=== PATIENT | male | born 1970 | race Caucasian/White ===

== ENCOUNTER 2022-05-07 12:17 | Outpatient (CLI) | payer MEDICARE | END 2022-05-07 12:18 | disposition home or self-care (01) | LOC: ULT 12:17 | PROVIDERS: ATTEND Specialist | DX: N18.9 Chronic kidney disease, unspecified (principal) | CPT/HCPCS: 93970 ==

== ENCOUNTER 2022-05-07 14:20 | Outpatient (CLI) | payer MEDICARE | END 2022-05-07 14:21 | disposition home or self-care (01) | LOC: LABBT 14:20 | PROVIDERS: ATTEND Specialist | DX: Z01.818 Encounter for other preprocedural examination (principal); Z20.822 Contact with and (suspected) exposure to COVID-19; N18.9 Chronic kidney disease, unspecified | CPT/HCPCS: 93005; 93970; U0003; U0005; 93010 ==

== ENCOUNTER 2022-05-12 10:01 | Day surgery (SDC) | payer MEDICARE ==
[2022-05-08 12:07] VITALS: BMI 44.9
[2022-05-12 11:35] LABS: #Eosinphils 0.2 thou/uL (0.0-0.7); #Lymphocytes 2.2 thou/uL (1.20-3.40); #Monocytes 0.8 thou/uL (0.11-0.59); #Neutrophils 6.4 thou/uL (1.40-6.50); %Basophils 0.3 % (0.0-1.0); %Eosinophils 2.1 % (0.0-10.0); %Lymphocytes 22.9 % (21.0-51.0); %Monocytes 8.4 % (0.0-10.0); %Neutrophils 66.3 % (42.0-75.0); Hemoglobin 9.1 g/dL (14.0-18.0); Mean Corpuscular HGB CONC 31.5 g/dL (32.0-36.0); Mean Corpuscular Hemoglobin 31.9 pg (27.0-31.0); Mean Platelet Volume 8.7 fL (7.4-10.4); Platelet Count 212 thou/uL (130-400); RBC Distribution Width 13.3 % (11.5-14.5); Red Blood Cell (RBC) Count 2.86 mill/uL (4.70-6.10); White Blood Cell (WBC) Count 9.7 thou/uL (4.8-10.8)
[2022-05-12 11:45] LABS: Anion Gap 16 mmol/L (10-20); BUN (Urea Nitrogen) 33 mg/dL (8.4-25.7); Calc. Creatinine Clearance 29 mL/min (70-130); Calcium 9.1 mg/dL (7.8-10.44); Carbon Dioxide 28 mmol/L (22-29); Chloride 100 mmol/L (98-107); Glucose 90 mg/dL (70-105); Potassium 4.2 mmol/L (3.5-5.1); Sodium 140 mmol/L (136-145)
[2022-05-12] MEDS ORDERED: fentaNYL Citrate/PF 100 MCG/2 ML SYRINGE ONE (13:09)
[2022-05-12] MEDS ORDERED: Famotidine/PF 20 mg/2ml Vial ONE (13:09)
[2022-05-12] MEDS ORDERED: SUGAMMADEX SODIUM 200 MG/2 ML VIAL ONE (13:09)
[2022-05-12] MEDS ORDERED: Heparin 5,000 UNITS/ML VIAL ONE (13:11)
[2022-05-12] MEDS ORDERED: Lidocaine 1% w/Epinephrine 1:100K 30 ML VIAL ONE (13:11)
[2022-05-12] MEDS ORDERED: Bupivacaine 0.25% HCL 30 ML VIAL ONE (13:11)
[2022-05-12] MEDS ORDERED: Protamine Sulfate 50 MG/5 ML VIAL ONE (13:11)
[2022-05-12] MEDS ORDERED: CEFAZOLIN 2 GM VIAL ONE (13:14)
[2022-05-12] MEDS ORDERED: Sodium Chloride 0.9% 100 ML ONE (13:15)
[2022-05-12] MEDS ORDERED: Ondansetron PF 4 MG/2 ML Vial ONE (13:24)
[2022-05-12] MEDS ORDERED: Lidocaine 1% PF 5 ML VIAL ONE (13:24)
[2022-05-12] MEDS ORDERED: PROPOFOL 200 MG/20 ML VIAL ONE (13:24)
[2022-05-12] MEDS ORDERED: Rocuronium Bromide 10 MG/ML (10ML VIAL) ONE (13:24)
[2022-05-12] MEDS ORDERED: Metoclopramide HCl 10 MG/2 ML VIAL ONE (13:24)
[2022-05-12] MEDS ORDERED: PHENYLEPHRINE-NS 100 MCG/ML 10 ML SYRINGE ONE (13:24)
[2022-05-12] MEDS ORDERED: HYDROcodone/Acetaminophen 5/325 mg Tablet ONE (16:03)
[2022-05-12] MEDS ORDERED: Heparin 1,000 UNITS/ML VIAL ONE (16:27)
== END 2022-05-12 16:45 | disposition home or self-care (01) ==
LOC: SDC 10:01
PROVIDERS: ATTEND Specialist
PROC: 031C0ZF Bypass Left Radial Artery to Lower Arm Vein, Open Approach (ICD-10-PCS; principal; 2022-05-12)
DX: I12.0 Hypertensive chronic kidney disease with stage 5 chronic kidney disease or end stage renal disease (principal); E11.22 Type 2 diabetes mellitus with diabetic chronic kidney disease; N18.6 End stage renal disease; E11.51 Type 2 diabetes mellitus with diabetic peripheral angiopathy without gangrene; E66.01 Morbid (severe) obesity due to excess calories; Z68.41 Body mass index [BMI] 40.0-44.9, adult; Z79.4 Long term (current) use of insulin; Z79.82 Long term (current) use of aspirin; Z79.899 Other long term (current) drug therapy; Z89.511 Acquired absence of right leg below knee; Z89.512 Acquired absence of left leg below knee; Z99.2 Dependence on renal dialysis
CPT/HCPCS: 80048; 85025; C1776; J0690; J1644; J2405; J2704; J2720; J2765; J3490; S0020; S0028

== ENCOUNTER 2022-06-30 07:19 | Day surgery (SDC) | payer MEDICARE ==
[2022-06-16 15:14] VITALS: BMI 44.9
[~2022-06-30 07:19] MED LIST: Heparin 1,000 UNITS/ML VIAL ONE
[2022-06-30 09:33] VITALS: BP 139/69; TEMP 98.3
== END 2022-06-30 09:19 | disposition home or self-care (01) ==
LOC: SPEC 07:19
PROVIDERS: ATTEND Specialist
PROC: 037C3ZZ Dilation of Left Radial Artery, Percutaneous Approach (ICD-10-PCS; principal; 2022-06-30)
DX: T82.858A Stenosis of other vascular prosthetic devices, implants and grafts, initial encounter (principal); I12.0 Hypertensive chronic kidney disease with stage 5 chronic kidney disease or end stage renal disease; E11.22 Type 2 diabetes mellitus with diabetic chronic kidney disease; N18.6 End stage renal disease; E11.51 Type 2 diabetes mellitus with diabetic peripheral angiopathy without gangrene; E66.01 Morbid (severe) obesity due to excess calories; Z68.41 Body mass index [BMI] 40.0-44.9, adult; Z79.82 Long term (current) use of aspirin; Z79.899 Other long term (current) drug therapy; Z89.512 Acquired absence of left leg below knee; Z99.2 Dependence on renal dialysis
CPT/HCPCS: 36901; 36902; C1725; C1887; J1644

== ENCOUNTER 2022-09-03 11:52 | Outpatient (CLI) | payer MEDICARE | END 2022-09-03 11:53 | disposition home or self-care (01) | LOC: LABBT 11:52 | PROVIDERS: ATTEND Specialist | DX: Z20.822 Contact with and (suspected) exposure to COVID-19 (principal) | CPT/HCPCS: 87811 ==

== ENCOUNTER 2022-09-04 11:48 | Emergency (ER) | payer MEDICARE ==
[2022-09-04] MEDS ORDERED: HYDROcodone/Acetaminophen 5/325 mg Tablet ONE (12:23)
[2022-09-04] MEDS ORDERED: Ketorolac Tromethamine 30 MG/ML VIAL ONE (12:23)
[2022-09-04 14:33] LABS: #Lymphocytes 1.2 thou/uL (1.20-3.40); #Monocytes 0.7 thou/uL (0.11-0.59); #Neutrophils 6.2 thou/uL (1.40-6.50); %Basophils 0.5 % (0.0-1.0); %Eosinophils 0.5 % (0.0-10.0); %Monocytes 8.6 % (0.0-10.0); %Neutrophils 75.5 % (42.0-75.0); Hemoglobin 11.4 g/dL (14.0-18.0); Mean Corpuscular HGB CONC 31.7 g/dL (32.0-36.0); Mean Corpuscular Hemoglobin 33.6 pg (27.0-31.0); Mean Platelet Volume 8.1 fL (7.4-10.4); Platelet Count 224 thou/uL (130-400); RBC Distribution Width 13.2 % (11.5-14.5); Red Blood Cell (RBC) Count 3.41 mill/uL (4.70-6.10); White Blood Cell (WBC) Count 8.2 thou/uL (4.8-10.8)
[2022-09-04 14:53] LABS: ALT (SGPT) 8 U/L (8-55); AST (SGOT) 9 U/L (5-34); Albumin 4.2 g/dL (3.5-5.0); Alkaline Phosphatase 59 U/L (40-110); Anion Gap 15 mmol/L (10-20); BUN (Urea Nitrogen) 16 mg/dL (8.4-25.7); Bilirubin, Total 0.5 mg/dL (0.2-1.2); Calc. Creatinine Clearance 0 mL/min (70-130); Calcium 8.9 mg/dL (7.8-10.44); Carbon Dioxide 30 mmol/L (22-29); Chloride 94 mmol/L (98-107); Estimated GFR 12; Globulin 2.5 g/dL (2.4-3.5); Glucose 91 mg/dL (70-105); Lipase 7 U/L (8-78); Magnesium 1.9 mg/dL (1.6-2.6); Potassium 4.4 mmol/L (3.5-5.1); Protein, Total 6.7 g/dL (6.0-8.3); Sodium 135 mmol/L (136-145)
[2022-09-04 15:01] LABS: MDiff Complete? YES; Macrocytosis SLIGHT = 6-15 cells (100X) (0-5/hpf); Platelet Morphology Comment Appears Adequate; Polychromasia SLIGHT = 2-3 cells (100X) (0-2/hpf); Stomatocytes SLIGHT = 2-5 cells (100X) (0-1/hpf)
== END 2022-09-04 15:41 | disposition home or self-care (01) ==
LOC: ERS 11:48
DX: R53.81 Other malaise (principal); R11.10 Vomiting, unspecified; E11.9 Type 2 diabetes mellitus without complications; I10 Essential (primary) hypertension; F17.220 Nicotine dependence, chewing tobacco, uncomplicated
CPT/HCPCS: 36415; 80053; 83605; 83690; 83735; 84484; 85025; 93005; 96372; J1885

== ENCOUNTER 2022-09-08 09:14 | Day surgery (SDC) | payer MEDICARE ==
[2022-09-07 11:42] VITALS: BMI 39.4
[2022-09-08 10:49] LABS: #Basophils 0.1 thou/uL (0.0-0.2); #Eosinphils 0.1 thou/uL (0.0-0.7); #Lymphocytes 1.9 thou/uL (1.20-3.40); #Monocytes 0.7 thou/uL (0.11-0.59); #Neutrophils 6.7 thou/uL (1.40-6.50); %Basophils 0.8 % (0.0-1.0); %Eosinophils 0.8 % (0.0-10.0); %Lymphocytes 19.5 % (21.0-51.0); %Monocytes 7.6 % (0.0-10.0); %Neutrophils 71.2 % (42.0-75.0); Hemoglobin 11.3 g/dL (14.0-18.0); Mean Corpuscular HGB CONC 31.2 g/dL (32.0-36.0); Mean Corpuscular Hemoglobin 33.2 pg (27.0-31.0); Mean Platelet Volume 8.6 fL (7.4-10.4); Platelet Count 226 thou/uL (130-400); RBC Distribution Width 13.4 % (11.5-14.5); Red Blood Cell (RBC) Count 3.41 mill/uL (4.70-6.10); White Blood Cell (WBC) Count 9.4 thou/uL (4.8-10.8)
[2022-09-08 11:04] LABS: Anion Gap 23 mmol/L (10-20); BUN (Urea Nitrogen) 38 mg/dL (8.4-25.7); Calc. Creatinine Clearance 19 mL/min (70-130); Calcium 9.3 mg/dL (7.8-10.44); Carbon Dioxide 23 mmol/L (22-29); Chloride 98 mmol/L (98-107); Estimated GFR 7; Glucose 74 mg/dL (70-105); Potassium 4.7 mmol/L (3.5-5.1); Sodium 139 mmol/L (136-145)
[2022-09-08] MEDS ORDERED: Fentanyl 100 MCG/2 ML VIAL ONE (11:17)
[2022-09-08] MEDS ORDERED: fentaNYL Citrate/PF 100 MCG/2 ML SYRINGE ONE (11:47)
[2022-09-08] MEDS ORDERED: PROPOFOL 40 ML ONE (11:48)
[2022-09-08] MEDS ORDERED: Bupivacaine PF 0.5% 30 ML VIAL ONE (12:01)
[2022-09-08] MEDS ORDERED: Protamine Sulfate 50 MG/5 ML VIAL ONE (12:01)
[2022-09-08] MEDS ORDERED: Lidocaine 2% PF 5 ML VIAL ONE (12:01)
[2022-09-08] MEDS ORDERED: EPINEPHrine 1 MG/ML AMP ONE (12:01)
[2022-09-08] MEDS ORDERED: Heparin 5,000 UNITS/ML VIAL ONE (12:01)
[2022-09-08] MEDS ORDERED: Sodium Chloride 0.9% 100 ML ONE (12:11)
[2022-09-08] MEDS ORDERED: CEFAZOLIN 2 GM VIAL ONE (12:11)
[2022-09-08] MEDS ORDERED: PROPOFOL 200 MG/20 ML VIAL ONE (12:45)
[2022-09-08] MEDS ORDERED: HYDROcodone/Acetaminophen 5/325 mg Tablet ONE (14:48)
[2022-09-08] MEDS ORDERED: Heparin 1,000 UNITS/ML VIAL ONE (15:11)
== END 2022-09-08 15:40 | disposition home or self-care (01) ==
LOC: SDC 09:14
PROVIDERS: ATTEND Specialist
PROC: 031C0ZF Bypass Left Radial Artery to Lower Arm Vein, Open Approach (ICD-10-PCS; principal; 2022-09-08)
DX: I12.0 Hypertensive chronic kidney disease with stage 5 chronic kidney disease or end stage renal disease (principal); E11.22 Type 2 diabetes mellitus with diabetic chronic kidney disease; N18.6 End stage renal disease; E66.01 Morbid (severe) obesity due to excess calories; Z68.39 Body mass index [BMI] 39.0-39.9, adult; Z79.82 Long term (current) use of aspirin; Z79.84 Long term (current) use of oral hypoglycemic drugs; Z79.899 Other long term (current) drug therapy; Z89.512 Acquired absence of left leg below knee
CPT/HCPCS: 36821; 80048; 85025; C1713; C1776; J0171; J0690; J1644; J2001; J2704; J2720; J3010; J3490; S0020

== ENCOUNTER 2024-09-28 10:52 | Observation (INO) | payer MEDICARE ==
[2024-09-28] MEDS ORDERED: Acetaminophen 325 MG TAB ONE (11:31)
[2024-09-28] MEDS ORDERED: Magnesium 2 GM/50 ML BAG (IN WATER) ONE (11:32)
[2024-09-28 11:34] LABS: #Basophils 0.08 10x3/uL (0.0-0.2); %Basophils 0.6 % (0.0-1.0); %Eosinophils 0.6 % (0.0-10.0); %Lymphocytes 28.7 % (21.0-51.0); %Monocytes 6.1 % (0.0-10.0); %Neutrophils 63.4 % (42.0-75.0); Hematocrit 38.3 % (42.0-52.0); Hemoglobin 12.7 g/dL (14.0-18.0); Mean Corpuscular HGB CONC 33.2 g/dL (32.0-36.0); Mean Corpuscular Hemoglobin 30.7 pg (27.0-31.0); Mean Corpuscular Volume 92.5 fL (78.0-98.0); Mean Platelet Volume 12.1 fL (7.4-10.4); Platelet Count 267 10x3/uL (130-400); RBC Distribution Width 14.2 % (11.5-14.5); Red Blood Cell (RBC) Count 4.14 mill/uL (4.70-6.10)
[2024-09-28 11:48] LABS: ALT (SGPT) 19 U/L (8-55); AST (SGOT) 16 U/L (5-34); Albumin 3.6 g/dL (3.5-5.0); Alkaline Phosphatase 91 U/L (40-110); Anion Gap 22 mmol/L (10-20); BUN (Urea Nitrogen) 13 mg/dL (8.4-25.7); Bilirubin, Total 0.7 mg/dL (0.2-1.2); Calc. Creatinine Clearance 0 mL/min (70-130); Calcium 9.3 mg/dL (7.8-10.44); Carbon Dioxide 24 mmol/L (22-29); Chloride 96 mmol/L (98-107); Estimated GFR 7; Glucose 129 mg/dL (70-105); Potassium 3.3 mmol/L (3.5-5.1); Protein, Total 6.6 g/dL (6.0-8.3); Sodium 139 mmol/L (136-145)
[2024-09-28 11:49] LABS: Acetaminophen Less than 10 mcg/mL (Less than 10); Alcohol Less than 10.0 mg/dL (Less than 10); Salicylate Less than 8.0 mg/dL (Less than 8.0)
[2024-09-28 11:51] LABS: Troponin I 0.057 ng/mL (< 0.028)
[2024-09-28 12:25] LABS: Magnesium 1.8 mg/dL (1.6-2.6)
[2024-09-28] MEDS ORDERED: LevoFLOXacin 750 mg/D5W 150 ml Premix Bag ONE (12:32)
[2024-09-28] MEDS ORDERED: Bisacodyl 5 MG TAB PO PRN (13:15)
[2024-09-28] MEDS ORDERED: Bisacodyl 10 MG SUPP PR PRN (13:15)
[2024-09-28] MEDS ORDERED: Ondansetron PF 4 MG/2 ML Vial IVP PRN (13:15)
[2024-09-28] MEDS ORDERED: Calcium Carbonate 500 MG ChewTAB PO PRN (13:15)
[2024-09-28] MEDS ORDERED: Guaifenesin DM 100-10/5 ML UDCUP PO PRN (13:15)
[2024-09-28] MEDS ORDERED: Senokot S 8.6-50 MG TAB PO PRN (13:15)
[2024-09-28] MEDS ORDERED: Glucagon 1 MG/ML KIT IM PRN (13:21)
[2024-09-28] MEDS ORDERED: Insulin Lispro 100 UNIT/ML 10 ML VIAL SC PRN (13:21)
[2024-09-28] MEDS ORDERED: Dextrose 5% in Water 1,000 ML IV PRN (13:21)
[2024-09-28] MEDS ORDERED: Dextrose 50% Abboject 50 ML SYRINGE SLOW IVP PRN (13:21)
[2024-09-28] MEDS ORDERED: Iopamidol-370 76% 500 ML MDV (1 ML CHARGE) ONE (13:41)
[2024-09-28 16:16] VITALS: BMI 33.4
[2024-09-28] MEDS: Heparin 5,000 UNITS/ML VIAL SC SCH (16:35)
[2024-09-28] MEDS: Carvedilol 25 MG TAB PO SCH (16:35)
[2024-09-28] MEDS: Sevelamer Carbonate 800 MG TAB PO SCH (16:35)
[2024-09-28 16:52] LABS: Lactic Acid 1.34 mmol/L (0.5-2.2)
[2024-09-28] MEDS: hydrALAZINE 25 MG TAB PO SCH (18:19)
[2024-09-28 18:34] LABS: Troponin I 0.076 ng/mL (< 0.028)
[2024-09-28] MEDS: Ondansetron ODT 4 MG TAB PO PRN (20:36)
[2024-09-28] MEDS: Atorvastatin Calcium 40 MG TAB PO SCH (20:36)
[2024-09-28] MEDS: Doxycycline 100 MG in Sodium Chloride 0.9% 100 ML IVPB SCH (20:37)
[2024-09-28] MEDS: Melatonin 3 MG TAB PO PRN (20:37)
[2024-09-29] MEDS: Melatonin 3 MG TAB PO PRN (01:32)
[2024-09-29 05:34] LABS: #Basophils 0.06 10x3/uL (0.0-0.2); %Basophils 0.5 % (0.0-1.0); %Eosinophils 1.5 % (0.0-10.0); %Lymphocytes 16.3 % (21.0-51.0); %Monocytes 7.6 % (0.0-10.0); %Neutrophils 73.8 % (42.0-75.0); Hemoglobin 11.1 g/dL (14.0-18.0); Mean Corpuscular HGB CONC 31.7 g/dL (32.0-36.0); Mean Corpuscular Hemoglobin 30.9 pg (27.0-31.0); Mean Corpuscular Volume 97.5 fL (78.0-98.0); Mean Platelet Volume 12.7 fL (7.4-10.4); Platelet Count 216 10x3/uL (130-400); RBC Distribution Width 14.6 % (11.5-14.5); Red Blood Cell (RBC) Count 3.59 mill/uL (4.70-6.10)
[2024-09-29 05:56] LABS: ALT (SGPT) 15 U/L (8-55); AST (SGOT) 14 U/L (5-34); Alkaline Phosphatase 73 U/L (40-110); Anion Gap 16 mmol/L (10-20); BUN (Urea Nitrogen) 17 mg/dL (8.4-25.7); Bilirubin, Total 0.5 mg/dL (0.2-1.2); Calc. Creatinine Clearance 16 mL/min (70-130); Calcium 8.6 mg/dL (7.8-10.44); Carbon Dioxide 26 mmol/L (22-29); Chloride 97 mmol/L (98-107); Estimated GFR 6; Globulin 2.9 g/dL (2.4-3.5); Glucose 93 mg/dL (70-105); Potassium 3.1 mmol/L (3.5-5.1); Protein, Total 5.9 g/dL (6.0-8.3); Sodium 136 mmol/L (136-145)
[2024-09-29] MEDS ORDERED: Non-Formulary Item 1 EACH (Carvedilol [Coreg] 12.5 MG Tab) PO SCH (08:00)
[2024-09-29] MEDS ORDERED: Azithromycin 500 MG in Sodium Chloride 0.9% 250 ML 250 ML IVPB SCH (09:00)
[2024-09-29] MEDS ORDERED: Amlodipine 10 MG TAB PO SCH (09:00)
[2024-09-29] MEDS: Lisinopril 20 MG TAB PO SCH (09:05)
[2024-09-29] MEDS: Potassium Chloride 20 MEQ TAB PO SCH (09:05)
[2024-09-29] MEDS: Acetaminophen/Codeine 30-300mg Tablet PO PRN (09:06)
[2024-09-29] MEDS: Aspirin 81 mg Enteric Coated Tablet PO SCH (09:07)
[2024-09-29] MEDS: Amlodipine 5 MG TAB PO SCH (09:07)
[2024-09-29] MEDS: cefTRIAXone\\ROCEPHIN 1 GM in Sodium Chloride 0.9% 100 ML IVPB SCH (09:17)
[2024-09-29 11:47] VITALS: BP 120/56; TEMP 97.8
[2024-10-03] MEDS ORDERED: Ergocalciferol 1.25 MG(50,000 UNITS) CAP PO SCH (09:00)
== END 2024-09-29 15:00 | disposition home or self-care (01) ==
LOC: ERS 10:52 → 2NO 15:46 → INTOOBSV 15:46
PROVIDERS: ADMIT Internal Medicine; ATTEND Internal Medicine
DX: I12.0 Hypertensive chronic kidney disease with stage 5 chronic kidney disease or end stage renal disease (principal); N18.6 End stage renal disease; I49.3 Ventricular premature depolarization; E11.22 Type 2 diabetes mellitus with diabetic chronic kidney disease; G62.9 Polyneuropathy, unspecified; J18.9 Pneumonia, unspecified organism; D64.9 Anemia, unspecified; F17.220 Nicotine dependence, chewing tobacco, uncomplicated; Z90.49 Acquired absence of other specified parts of digestive tract; Z99.2 Dependence on renal dialysis; Z79.2 Long term (current) use of antibiotics; Z79.899 Other long term (current) drug therapy
CPT/HCPCS: 70450; 71045; 71260; 80053; 80307; 82962 ×2; 83605; 83735; 84484 ×3; 85025; 87040; 93005; 96365; 96367; 99285; G0378; J0696; J1644 ×2; J1956; J3475; Q0162; Q9967; 36415; 36416; 84443